=== PATIENT | female | born 1975 | race Hispanic/Latino ===

== ENCOUNTER 2017-08-30 07:02 | Outpatient (CLI) | payer OTHER | END 2017-08-30 07:03 | disposition home or self-care (01) | PROVIDERS: ATTEND Internal Medicine Endocrinology, Diabetes & Metabolism | DX: I49.9 Cardiac arrhythmia, unspecified (principal) | CPT/HCPCS: 93225; 93226 ==

== ENCOUNTER 2018-03-09 15:26 | Outpatient (CLI) | payer OTHER | END 2018-03-09 15:27 | disposition home or self-care (01) | LOC: BICMAMMO 15:26 | PROVIDERS: ATTEND Family Medicine | DX: Z12.31 Encounter for screening mammogram for malignant neoplasm of breast (principal); Z80.3 Family history of malignant neoplasm of breast | CPT/HCPCS: 77063; 77067 ==

== ENCOUNTER 2018-11-14 15:15 | Inpatient (IN) | payer OTHER ==
--- NOTE | 2018-11-14 23:05 | HP ---
She is scheduled for surgery on November 22. HISTORY OF PRESENT ILLNESS: Ms. Hdz is a 43-year-old female, G2, P2, who has been having progressively heavy menstrual cycles. She has been anemic due to the heavy menstrual flow. They have been getting heavier in the past year or so. She denies any bleeding in between periods, but does report severe dysmenorrhea and also feeling premenstrual cramping all months prior to the onset of her flow. She has had a normal Pap smear with HPV screening in 2016. She has also been treated for Graves disease and is under control with treatment therapy and methimazole. PAST MEDICAL HISTORY: Noted for Graves disease. PAST SURGICAL HISTORY: Appendectomy. ALLERGIES: CODEINE, LATEX, AND NAPROXEN. CURRENT MEDICATIONS: Methimazole 5 mg tablet daily. FAMILY HISTORY: Mother had breast cancer. SOCIAL HISTORY: Nonsmoker. No excessive alcohol or any illicit drug use. PHYSICAL EXAMINATION: VITAL SIGNS: The patient's height is 5 feet 4 inches, weight 148, BMI 25.4. Blood pressure 110/68, pulse 90, respirations 18. HEENT: Within normal limits. CHEST: Clear to auscultation. HEART: Regular rate and rhythm. S1, S2 heart sounds. No murmurs, rubs, or gallops. ABDOMEN: Soft, nontender, nondistended with no palpable masses. PELVIC: Vulva and vagina had no lesions. Cervix had no lesions. Uterus was bulky, approximately 10- to 12-week size and mildly tender. Adnexa were nontender with no masses. DIAGNOSTIC DATA: Pelvic exam performed on 10/12/2018 showed the uterus measuring 10.4 x 7.95 x 5.5 cm with endometrial thickness of 4.9 mm left. Both right and left ovaries were normal. ASSESSMENT: This is a 43-year-old female with menorrhagia and dysmenorrhea and pelvic exam and ultrasound findings consistent with adenomyosis of the uterus. The patient is desiring definitive surgical therapy. She is scheduled for a robotic total laparoscopic hysterectomy with bilateral salpingectomy and possible oophorectomy if indicated. Risks and benefits of procedure have discussed in detail. She is set up for surgery on 11/22/2018. Job ID: [id number]
[2018-11-17 15:48] VITALS: BMI 24.5
[2018-11-22] MEDS ORDERED: Famotidine/PF 20 mg/2ml Vial ONE (06:15)
[2018-11-22] MEDS ORDERED: CEFAZOLIN 2 GM/50 ML BAG ONE (06:15)
[2018-11-22] MEDS ORDERED: Gabapentin 300 MG CAP ONE (06:15)
[2018-11-22] MEDS ORDERED: CeleCOXIB 100 MG CAP ONE (06:16)
[2018-11-22] MEDS ORDERED: Bupivacaine HCl 0.5%/Epinephrine 1:200,000/PF 30 ml Vial ONE (06:38)
[2018-11-22] MEDS ORDERED: Fentanyl 250 MCG/5 ML VIAL ONE (06:59)
[2018-11-22] MEDS ORDERED: KETAMINE 100 MG/ML (5ML VIAL) ONE (06:59)
[2018-11-22] MEDS ORDERED: Midazolam HCl 2 mg/2 ml Vial ONE (07:26)
[2018-11-22] MEDS ORDERED: Fentanyl 100 MCG/2 ML VIAL ONE (10:39)
[2018-11-22] MEDS ORDERED: Promethazine HCl 25 MG/ML VIAL ONE (10:42)
[2018-11-22] MEDS ORDERED: Morphine 4 MG/ML VIAL SLOW IVP PRN (11:01)
[2018-11-22] MEDS ORDERED: Ondansetron PF 4 MG/2 ML Vial IVP PRN (11:01)
[2018-11-22] MEDS ORDERED: Simethicone Chewable 80 MG TAB PO PRN (11:01)
[2018-11-22] MEDS ORDERED: Zolpidem Tartrate 5 MG TAB PO PRN (11:01)
[2018-11-22] MEDS ORDERED: Promethazine HCl 25 MG/ML VIAL IM PRN (11:01)
[2018-11-22] MEDS ORDERED: Bisacodyl 10 MG SUPP PR PRN (11:01)
[2018-11-22] MEDS ORDERED: diphenhydrAMINE 25 MG CAP PO PRN (11:01)
[2018-11-22] MEDS ORDERED: traMADol HCl 50 MG TAB PO PRN ×2 (11:01)
[2018-11-22] MEDS ORDERED: Acetaminophen 1,000 MG in Premix Bag 1 BAG IVPB SCH (12:00)
[2018-11-22] MEDS ORDERED: Ketorolac Tromethamine 30 MG/ML VIAL IVP SCH (12:00)
[2018-11-22] MEDS: Lactated Ringer's 1,000 ML IV SCH ×2 (12:47→18:27)
[2018-11-22] MEDS: Acetaminophen 1,000 MG in Premix Bag 1 BAG IVPB SCH ×2 (13:33→20:09)
[2018-11-22] MEDS: Ketorolac Tromethamine 30 MG/ML VIAL IVP SCH ×2 (15:13→22:05)
--- NOTE | 2018-11-22 15:26 | OP ---
DATE OF PROCEDURE: 11/22/2018 PREOPERATIVE DIAGNOSES: 1. A 43-year-old female with menorrhagia and dysmenorrhea. 2. Adenomyotic appearing uterus on ultrasound. 3. Pelvic pain. POSTOPERATIVE DIAGNOSES: 1. A 43-year-old female with menorrhagia and dysmenorrhea. 2. Adenomyotic appearing uterus on ultrasound. 3. Pelvic pain. 4. Evidence of pelvic endometriosis. PROCEDURES PERFORMED: Robotic total laparoscopic hysterectomy and bilateral salpingectomy. ONION TIER SURGEON: Xiang Kirk DO, MS ANESTHESIA: General endotracheal. ESTIMATED BLOOD LOSS: 50 mL. COMPLICATIONS: None. COUNTS: Correct x2. ANTIBIOTICS: 2 g Ancef, on-call to OR. PATHOLOGY: Uterus, cervix, and bilateral fallopian tubes. FINDINGS: 1. Normal-appearing bilateral ovaries and fallopian tubes. 2. Uterus enlarged and adenomyotic and boggy in appearance, approximately 10 to 12 week size. 3. Clear urine present in Lagunas catheter postprocedure and bladder was watertight. Total fluid distention greater than 300 mL postprocedure. 4. Bilateral ureteral peristalsis visualized postprocedure. 5. Some powder-burn lesions scattered in the posterior cul-de-sac. Peritoneum noted consistent with pelvic endometriosis. DISPOSITION: Recovery room, stable. DESCRIPTION OF PROCEDURE: The patient previously received informed consent in regard to surgery. She was taken back to the operating room, where she received a general endotracheal anesthetic agent without complications. She was then placed in the dorsal lithotomy position with the use of Yimi stirrups. This time, a Lagunas catheter was placed and a side-arm speculum was placed in the vagina. The anterior lip of the cervix was grasped with single-tooth tenaculum and uterus sounded 11 cm. A size 10 cm NORIS uterine manipulator with 4.0 cm cervical cup was placed in usual fashion. Tenaculum and speculum were removed. Attention was then turned to the abdomen, where perspective trocar sites were all infiltrated with 0.5% Marcaine with epinephrine. A 12 mm supraumbilical incision was made. Veress needle was placed into the peritoneal cavity with the patient pressure less than 5 mm. Abdomen was insufflated with the patient's pressure of 15 approximately 4.5 L of carbon dioxide gas. Veress needle was then removed. A 12 mm trocar was then placed in the supraumbilical incision and laparoscope was introduced, trocar sleeve confirming proper entry. Bilateral 8 mm robotic trocars were then placed under laparoscopic guidance along with the right upper quadrant 11 mm carpenter assistant port. The patient was placed in Trendelenburg position and then the robot was docked in usual fashion. I then proceeded to carry out the procedure from the operative console while my assistants remained at the bedside. The uterus was elevated from the pelvis with the uterine manipulator. The left fallopian tube was grasped by my carpenter assistant, and the medial salpinx of the left tube was then cauterized and transected with Bovie cautery and monopolar scissors. Tube was then removed from the right upper quadrant carpenter assistant port. The left uterine ovarian ligaments were then coagulated and transected. Bipolar fenestrated cautery and monopolar scissors. The broad ligament hugging close to uterine specimen with the uterus being deflected medially away from the pelvic sidewall by my assistants was then coagulated and transected to till the left round ligament was reached. It was coagulated and transected. The anterior leaf of the broad ligament was entered and the anterior vesicouterine peritoneal reflection was incised under direct visualization with monopolar scissors, dissecting the bladder atraumatically past the cervical vaginal margin. The left uterine vessels were then skeletonized and then the uterine vessels were coagulated in the internal cervical os region. This was carried out in likewise fashion with the right fallopian tube being grasped by my carpenter assistant. The mesosalpinx being cauterized and transected and the tube being removed through the right upper quadrant port. Uterine ovarian ligaments were then coagulated and transected. Broad ligament structures hugging close to the uterus were then coagulated and transected again to the right round ligament was reached. Again, it was coagulated, transected, and then the anterior leaf of the broad ligament was entered again dissecting the vesicouterine peritoneal reflection bluntly and sharply dissecting the bladder atraumatically past the cervical vaginal angle. The bladder was checked intermittently with distention to ascertain watertightness in location and intactness. The right uterine vessels were then skeletonized again at the internal cervical os in a layering technique and these were then coagulated here with bipolar fenestrated cautery. Once the bladder had been adequately dissected past the cervical region, the anterior colpotomy was initiated with monopolar scissors starting the 12 to 3 o'clock and 12 to 9 o'clock position. The vessels were inside the incision site were coagulated at 3 and 9 o'clock. The posterior colpotomy was then completed from 6 to 9 and 6 to 3 in likewise fashion. The monopolar scissor was exchanged for a Regis needle sprinkling truck driver. The specimen was then placed and delivered into the vaginal vault by my carpenter assistant. The vaginal cuff was then cauterized any remaining areas of oozing with bipolar fenestrated cautery. Then, my carpenter assistant brought in a Stratafix suture from the right upper quadrant port and the vaginal cuff was closed in full-thickness closure starting the right angle towards the left angle back towards the midline. Hemostasis was confirmed. After this was completed, this needle and remaining suture were delivered through the right upper quadrant port intact. The pelvis was irrigated and suctioned. Bilateral ureteral peristalsis was visualized. The course of the ureter was noted to be below the operative sites. Again, the Lagunas was draining clear urine. The bladder was distended again and intactness of the bladder was confirmed. The robot was then undocked. Excess carbon dioxide gas was released from the abdomen and the trocar site closures were carried out. A deep stitch of 0 Vicryl was placed in the fascial defect in the umbilical region and the umbilical fascial defect. Remainder of the trocar sites were closed with 4-0 Monocryl suture and Dermabond. The vaginal vault in the vaginal area was inspected. The cuff was intact and hemostatic vaginally. There was a laceration at the right periurethral region of the vagina noted that was actively bleeding. This was closed and made hemostatic with a running locking 2-0 chromic suture. Lagunas remained in place. Clear urine draining from the Lagunas catheter and the Lagunas catheter was easily movable in and out in the urethral site. The patient was then awakened from anesthesia and transferred to recovery room in stable condition. Job ID: [id number]
[2018-11-22] MEDS ORDERED: Rocuronium Bromide 10 MG/ML (10ML VIAL) ONE (16:24)
[2018-11-22] MEDS ORDERED: Lidocaine 1% PF 5 ML VIAL ONE (16:24)
[2018-11-22] MEDS ORDERED: Ketorolac Tromethamine 30 MG/ML VIAL ONE (16:24)
[2018-11-22] MEDS ORDERED: Glycopyrrolate 0.2 MG/ML 5 ML SYRINGE ONE (16:24)
[2018-11-22] MEDS ORDERED: Dexamethasone 20 MG/5 ML VIAL ONE (16:24)
[2018-11-22] MEDS ORDERED: Ondansetron PF 4 MG/2 ML Vial ONE (16:24)
[2018-11-22] MEDS ORDERED: PHENYLEPHRINE-NS 100 MCG/ML 10 ML SYRINGE ONE (16:24)
[2018-11-22] MEDS ORDERED: PROPOFOL 200 MG/20 ML VIAL ONE (16:24)
[2018-11-23] MEDS: Acetaminophen 1,000 MG in Premix Bag 1 BAG IVPB SCH ×2 (02:49→08:58)
[2018-11-23] MEDS: Lactated Ringer's 1,000 ML IV SCH (05:08)
[2018-11-23] MEDS: Ketorolac Tromethamine 30 MG/ML VIAL IVP SCH ×2 (05:08→08:58)
[2018-11-23 06:33] LABS: Hemoglobin 10.7 g/dL (12.0-16.0); Mean Corpuscular HGB CONC 31.2 g/dL (32.0-36.0); Mean Corpuscular Volume 83.4 fL (78.0-98.0); Mean Platelet Volume 8.1 fL (7.4-10.4); Platelet Count 334 thou/uL (130-400); RBC Distribution Width 13.7 % (11.5-14.5); Red Blood Cell (RBC) Count 4.12 mill/uL (4.20-5.40); White Blood Cell (WBC) Count 10.4 thou/uL (4.8-10.8)
[2018-11-23 08:04] VITALS: BP 109/58; TEMP 98
--- NOTE | 2018-11-23 11:06 | DIS ---
DATE OF ADMISSION: 11/22/2018 DATE OF DISCHARGE: 11/23/2018 DIAGNOSES: 1. Menorrhagia. 2. Dysmenorrhea. 3. Adenomyosis of the uterus. 4. Pelvic endometriosis. SUMMARY OF HOSPITAL COURSE: Ms. Hdz is a 43-year-old female who had persistent menorrhagia and severe dysmenorrhea and chronic premenstrual symptoms and has decided to proceed with definitive surgical therapy. She underwent a robotic total laparoscopic hysterectomy with bilateral salpingectomy on 11/22/2018. Postoperatively, the patient has done well. Her vital signs have remained stable and postoperative hematocrit was appropriately at 34%. She is ambulating, voiding, and tolerating a regular diet at time of discharge to home. Pathology is pending. DISCHARGE MEDICATIONS: 1. Tramadol 50 mg q.6 hours p.r.n. pain. 2. Bldp-ika-bwvanwk ibuprofen as directed. DISCHARGE INSTRUCTIONS: She has a followup in 2 and 6 weeks postoperatively. Job ID: [id number]
[2018-11-27] MEDS ORDERED: Ibuprofen 800 MG TAB PO SCH (21:00)
== END 2018-11-23 10:07 | disposition home or self-care (01) | DRG 743 ==
LOC: SURG A 11-22 05:57 → 3SE 11-22 11:45 → EEVIPCON 11-22 15:15
PROVIDERS: ADMIT Obstetrics & Gynecology; ATTEND Obstetrics & Gynecology
PROC: 0UT94ZZ Resection of Uterus, Percutaneous Endoscopic Approach (ICD-10-PCS; principal; 2018-11-22)
PROC: 0UT74ZZ Resection of Bilateral Fallopian Tubes, Percutaneous Endoscopic Approach (ICD-10-PCS; 2018-11-22)
PROC: 8E0W4CZ Robotic Assisted Procedure of Trunk Region, Percutaneous Endoscopic Approach (ICD-10-PCS; 2018-11-22)
DX: N80.0 Endometriosis of uterus (principal); E05.00 Thyrotoxicosis with diffuse goiter without thyrotoxic crisis or storm; Z90.49 Acquired absence of other specified parts of digestive tract; Z88.5 Allergy status to narcotic agent; Z88.8 Allergy status to other drugs, medicaments and biological substances; Z91.040 Latex allergy status
CPT/HCPCS: 36415; 85027; 88307; J0131; J0670; J1100; J1885; J2001; J2250; J2405; J2550; J2704; J3010; S0028

== ENCOUNTER 2018-11-17 15:30 | Outpatient (CLI) | payer OTHER ==
--- NOTE | 2018-11-14 23:05 | HP ---
She is scheduled for surgery on November 22. HISTORY OF PRESENT ILLNESS: Ms. Hdz is a 43-year-old female, G2, P2, who has been having progressively heavy menstrual cycles. She has been anemic due to the heavy menstrual flow. They have been getting heavier in the past year or so. She denies any bleeding in between periods, but does report severe dysmenorrhea and also feeling premenstrual cramping all months prior to the onset of her flow. She has had a normal Pap smear with HPV screening in 2016. She has also been treated for Graves disease and is under control with treatment therapy and methimazole. PAST MEDICAL HISTORY: Noted for Graves disease. PAST SURGICAL HISTORY: Appendectomy. ALLERGIES: CODEINE, LATEX, AND NAPROXEN. CURRENT MEDICATIONS: Methimazole 5 mg tablet daily. FAMILY HISTORY: Mother had breast cancer. SOCIAL HISTORY: Nonsmoker. No excessive alcohol or any illicit drug use. PHYSICAL EXAMINATION: VITAL SIGNS: The patient's height is 5 feet 4 inches, weight 148, BMI 25.4. Blood pressure 110/68, pulse 90, respirations 18. HEENT: Within normal limits. CHEST: Clear to auscultation. HEART: Regular rate and rhythm. S1, S2 heart sounds. No murmurs, rubs, or gallops. ABDOMEN: Soft, nontender, nondistended with no palpable masses. PELVIC: Vulva and vagina had no lesions. Cervix had no lesions. Uterus was bulky, approximately 10- to 12-week size and mildly tender. Adnexa were nontender with no masses. DIAGNOSTIC DATA: Pelvic exam performed on 10/12/2018 showed the uterus measuring 10.4 x 7.95 x 5.5 cm with endometrial thickness of 4.9 mm left. Both right and left ovaries were normal. ASSESSMENT: This is a 43-year-old female with menorrhagia and dysmenorrhea and pelvic exam and ultrasound findings consistent with adenomyosis of the uterus. The patient is desiring definitive surgical therapy. She is scheduled for a robotic total laparoscopic hysterectomy with bilateral salpingectomy and possible oophorectomy if indicated. Risks and benefits of procedure have discussed in detail. She is set up for surgery on 11/22/2018. Job ID: [id number]
[2018-11-17 17:18] LABS: Hemoglobin 11.6 g/dL (12.0-16.0); Mean Corpuscular Hemoglobin 27.2 pg (27.0-31.0); Mean Corpuscular Volume 85.1 fL (78.0-98.0); Mean Platelet Volume 8.1 fL (7.4-10.4); Platelet Count 429 thou/uL (130-400); RBC Distribution Width 14.1 % (11.5-14.5); Red Blood Cell (RBC) Count 4.27 mill/uL (4.20-5.40); White Blood Cell (WBC) Count 7.2 thou/uL (4.8-10.8)
[2018-11-17 17:26] LABS: BHCG - Serum Negative (NEGATIVE); Pregs Control Background? CLEAR/WHITE (CLR/WHITE); Pregs Control Bar Appear? YES (CONTROL BAR)
[2018-11-17 17:51] LABS: Free T4 (Free Thyroxine) 1.24 ng/dL (0.70-1.48); Thyroid Stimulating Hormone 1.4908 uIU/mL (0.35-4.94)
== END 2018-11-17 15:31 | disposition home or self-care (01) ==
LOC: LABBT 15:30
PROVIDERS: ATTEND Obstetrics & Gynecology
DX: Z01.812 Encounter for preprocedural laboratory examination (principal); N92.0 Excessive and frequent menstruation with regular cycle; N80.0 Endometriosis of uterus
CPT/HCPCS: 84439; 84443; 84703; 85027; 86850; 86900; 86901